=== PATIENT | male | born 2000 | race African-American/Black ===

== ENCOUNTER 2020-05-28 19:07 | Emergency (ER) | payer BC, OTHER ==
[~2020-05-28] VITALS: Ht 182.9 cm; Wt 84.8 kg
[2020-05-28] MEDS ORDERED: KETOROLAC 30 MG/ML VIAL IM STA (19:19)
--- NOTE | 2020-05-28 19:19 | ED Upper Extremity ---
General Chief Complaint: Upper Extremity Stated Complaint: LEFT ARM INJURY Source: patient Exam Limitations: no limitations History of Present Illness Date Seen by Provider: May 28, 2020 Time Seen by Provider: 19:15 Initial Comments 19-year-old male presents with left upper arm pain and left lateral chest wall pain. Patient reports he was running around 630 down the hallway to get to separate for [employer]. He hit the wall and fell. He complains of pain throughout his left upper arm from his elbow up to his axillary along with his left lateral chest wall. Patient has painful range of motion space in his elbow. He denies any shortness of breath, nausea vomiting or other systemic complaints. Patient denies any other injuries. Allergies and Home Medications Allergies Coded Allergies: No Known Drug Allergies (Unverified , 05/28/20) Patient Home Medication List Home Medication List Reviewed: Yes Review of Systems Constitutional: No chills, No fever Respiratory: No cough, No short of breath Cardiovascular: see HPI; No chest pain, No palpitations Gastrointestinal: No abdominal pain, No nausea, No vomiting Musculoskeletal: see HPI Skin: no symptoms reported Psychiatric/Neurological: No Symptoms Reported Past Npuqxij-Hzvvme-Xprucg Hx Past Med/Social Hx: Reviewed Nursing Past Med/Soc Hx Physical Exam Vital Signs Vital Signs - First Documented 05/28/20 19:19 Temp 37.1 Pulse 80 Resp 15 B/P (MAP) 139/71 O2 Delivery Room Air Capillary Refill : Height, Weight, BMI Height: '" Weight: lbs. oz. kg; BMI Method: General Appearance: mild distress HEENT: PERRL/EOMI Neck: supple, normal inspection Cardiovascular: normal peripheral pulses, regular rate, rhythm Respiratory: lungs clear, normal breath sounds, other (Tenderness lateral chest wall) Gastrointestinal: non tender, soft Shoulder: soft tissue tenderness Elbow/Forearm: soft tissue tenderness Wrist: Yes normal inspection, Yes non-tender Hand: normal inspection, non-tender Neurologic/Tendon: normal sensation, normal motor functions, normal tendon functions Neurologic/Psychiatric: alert, normal mood/affect, oriented x 3 Skin: normal color, warm/dry Progress/Results/Core Measures Results/Orders My Orders Orders - MICHAEL LITTLEJOHN DO Humerus 2 View Left (05/28/20 19:19) Ribs 2-3 View Left (05/28/20 19:19) Ketorolac Injection (Toradol Injection) (05/28/20 19:19) Chest 1 View Ap/Pa Only (05/28/20 19:32) Vital Signs/I&O 05/28/20 19:19 Temp 37.1 Pulse 80 Resp 15 B/P (MAP) 139/71 O2 Delivery Room Air Progress Progress Note : Time: 20:03 Progress Note Patient with negative fast, negative chest x-ray, rib x-ray and x-ray of humerus. Patient likely with chest wall contusion/rib contusion. Patient is tender right along the lower ribs. Patient can use 4% topical lidocaine with menthol along with Naprosyn. He can return to football practice and play as tolerated Diagnostic Imaging Diagonstic Imaging: Xray Plain Films/CT/US/NM/MRI: chest Comments [facility] [place], [place] NAME: JEOVANNY DE SOUZA [facility] REC#: [id number] PT STATUS: REG ER : 2000 PHYSICIAN: MICHAEL LITTLEJOHN DO ADMIT DATE: 05/28/20/ER FS Signed Date of Exam:05/28/20 CHEST 1 VIEW AP/PA ONLY Indication: Chest and rib pain Portable upright AP view of the chest is obtained. COMPARISON: No previous study is available for comparison at this time. FINDINGS: Heart size and pulmonary vasculature are within normal limits, and the lungs are clear, bilaterally. IMPRESSION: Unremarkable chest. Dictated by: [facility], [place] NAME: JEOVANNY DE SOUZA MED REC#: [id number] PT STATUS: REG ER : 2000 PHYSICIAN: MICHAEL LITTLEJOHN DO ADMIT DATE: 05/28/20/ER FS Draft Date of Exam:05/28/20 RIBS 2-3 VIEW LEFT INDICATION: Left rib injuries with pain. EXAMINATION: AP and multiple oblique views of the left ribs were obtained. FINDINGS: No fracture or malalignment is identified. There is no pneumothorax or pleural reaction. No abnormal lytic or scarring focus is identified. IMPRESSION: No radiographic evidence of displaced left rib fracture. Reviewed: Reviewed by Me, Reviewed/Discussed Plain Films/CT/US/NM/MRI: other Comments [facility] [place], [place] NAME: JEOVANNY DE SOUZA [facility] REC#: [id number] PT STATUS: REG ER : 2000 PHYSICIAN: MICHAEL LITTLEJOHN DO ADMIT DATE: 05/28/20/ER FS Signed Date of Exam:05/28/20 HUMERUS 2 VIEW LEFT Indication: Left upper arm injury AP and lateral views of the left upper arm are obtained. FINDINGS: No acute fracture or dislocation is identified. No abnormal lytic or sclerotic focus is seen, and there is no radiopaque foreign body. IMPRESSION: No acute abnormality. Dictated by: Dictated on workstation # [id number] Dict: 05/28/201955 Trans: 05/28/201955 [id number] Interpreted by: LAKIA SARGENT MD Electronically signed by: LAKIA SARGENT MD 05/28/201955 Reviewed: Reviewed by Me, Reviewed/Discussed Departure Impression Primary Impression: Contusion of left chest wall Qualified Codes: S20.212A - Contusion of left front wall of thorax, initial encounter Additional Impression: Contusion of left upper arm Qualified Codes: S40.022A - Contusion of left upper arm, initial encounter Disposition: HOME, SELF-CARE Condition: Stable Departure-Patient Inst. Referrals: NO,LOCAL PHYSICIAN (PCP/Family) Primary Care Physician Patient Instructions: Bruised Rib, Minor Contusion ED, Contusion (DC) Add. Discharge Instructions: Ice to affected area You may return to our practice as tolerated 4% topical lidocaine with menthol as directed on package All discharge instructions reviewed with patient and/or family. Voiced understanding. Scripts Naproxen (Naprosyn) 500 Mg Tablet 500 MG PO BID, #30 TAB 0 Refills Prov: MICHAEL LITTLEJOHN DO 05/28/20 MICHAEL LITTLEJOHN DO May 28, 2020 19:19
--- NOTE | 2020-05-28 19:32 | NUR ---
PT WAS SAYING HE COULDNT SEE OVER IN XRAY AND THAT THE PAIN WAS TOO BAD AND THEN HE SAT ON STOOL WITH THIS PHARM[employer]Y [employer] SUPPORT SPECIALIST AND THEN SLID OFF ONTO THE FLOOR.
--- NOTE | 2020-05-28 19:42 | NUR ---
called to [facility] to help get pt off of the floor, pt stating his pain caused him to "pass out". pt taken back to room in . pt instructed he was going to get a tordol injection, pt began hyperventilating with noted increased anxiety. pt instructed to relax and take deep breaths.
--- NOTE | 2020-05-28 19:45 | Diagnostic Imaging Report ---
Indication: Chest and rib pain Portable upright AP view of the chest is obtained. COMPARISON: No previous study is available for comparison at this time. FINDINGS: Heart size and pulmonary vasculature are within normal limits, and the lungs are clear, bilaterally. IMPRESSION: Unremarkable chest. Dictated by: Dictated on workstation # [id number]
--- NOTE | 2020-05-28 19:57 | Diagnostic Imaging Report ---
Indication: Left upper arm injury AP and lateral views of the left upper arm are obtained. FINDINGS: No acute fracture or dislocation is identified. No abnormal lytic or sclerotic focus is seen, and there is no radiopaque foreign body. IMPRESSION: No acute abnormality. Dictated by: Dictated on workstation # [id number]
--- NOTE | 2020-05-28 19:57 | Diagnostic Imaging Report ---
INDICATION: Left rib injuries with pain. EXAMINATION: AP and multiple oblique views of the left ribs were obtained. FINDINGS: No fracture or malalignment is identified. There is no pneumothorax or pleural reaction. No abnormal lytic or scarring focus is identified. IMPRESSION: No radiographic evidence of displaced left rib fracture. Dictated by: Dictated on workstation # [id number]
[2020-05-28] MEDS ORDERED: NAPR-1071 PO (20:06)
== END 2020-05-28 20:11 | disposition home or self-care (01) ==
LOC: ER FS 19:13
DX: S20.212A Contusion of left front wall of thorax, initial encounter (principal); S40.022A Contusion of left upper arm, initial encounter; W22.8XXA Striking against or struck by other objects, initial encounter
CPT/HCPCS: 71045; 71100; 73060